=== PATIENT | female | born 1985 | race Caucasian/White ===

== ENCOUNTER 2025-04-04 06:40 | Day surgery (SDC) | payer OTHER, SELFPAY | END 2025-04-04 10:50 | disposition home or self-care (01) | LOC: GI 06:40 | PROVIDERS: ATTENDING PHYSICIAN Internal Medicine Gastroenterology; FAMILY PHYSICIAN Emergency Medicine | DX: Z12.11 Encounter for screening for malignant neoplasm of colon (principal); K83.01 Primary sclerosing cholangitis; K64.9 Unspecified hemorrhoids; K51.00 Ulcerative (chronic) pancolitis without complications; K52.3 Indeterminate colitis; K63.89 Other specified diseases of intestine | CPT/HCPCS: 45380; 88305 ==